=== PATIENT | male | born 1980 | race African-American/Black ===

== ENCOUNTER 2020-10-04 22:19 | Emergency (ER) | payer OTHER ==
[2020-10-04 22:47] LABS: BASOPHILS # (AUTO) 0.1 10^3/uL (0.0-0.1); BASOPHILS % (AUTO) 0.4 %; EOSINOPHILS % (AUTO) 0.1 %; HGB - HEMOGLOBIN 16.5 g/dL (14.0-18.0); LYMPHOCYTES # (AUTO) 1.7 10^3/uL (1.5-3.5); LYMPHOCYTES % (AUTO) 10.2 %; MEAN CORPUSCULAR HEMOGLOBIN 33.5 pg (27.0-31.0); MEAN CORPUSCULAR HGB CONC 33.6 g/dL (32.0-36.0); MEAN CORPUSCULAR VOLUME 99.8 fL (80.0-94.0); MEAN PLATELET VOLUME 9.7 fL (7.4-11.4); MONOCYTES % (AUTO) 12.5 %; NEUTROPHILS # (AUTO) 12.4 10^3/uL (1.5-6.6); NEUTROPHILS % (AUTO) 76.1 %; PLT - PLATELET COUNT 355 10^3/uL (130-450); RED BLOOD COUNT 4.92 10^6/uL (4.70-6.10); RED CELL DISTRIBUTION WIDTH 12.5 % (12.0-15.0); WHITE BLOOD COUNT 16.3 x10^3/uL (4.8-10.8)
[2020-10-04 23:00] LABS: ALBUMIN 3.1 g/dL (3.2-5.5); BILIRUBIN,TOTAL 3.2 mg/dL (0.2-1.0); CALCIUM 8.5 mg/dL (8.5-10.3); CREATININE 1.6 mg/dL (0.6-1.2); TOTAL PROTEIN 6.2 g/dL (6.7-8.2)
--- NOTE | 2020-10-04 23:02 | ED Physician Documentation ---
PD HPI CHEST PAIN - Stated complaint Stated Complaint: CP - Chief complaint Chief Complaint: Critical Care - History obtained from History obtained from: Patient - History of Present Illness Timing - onset: How many days ago (2) Timing - onset during: Rest Timing - duration: Days (2) Timing - details: Gradual onset, Still present Quality: Sharp, Pain Location: Right chest Radiation: Back Improved by: Rest Worsened by: Exertion, Inspiration, Movement, Position Associated symptoms: Shortness of air Similar symptoms before: Has not had sx before Recently seen: Not recently seen - Additional information Additional information: Previously well 40-year-old male who works as a civilian contracted commercial airplane pilot for the [email or web address] has developed pain in the right side of his chest about 2 days ago he does have a slight cough he denies a fever he does have some diaphoresis and he has some exertional dyspnea.He was exposed to coronavirus in July had tests which were negative and he does not feel he has been reexposed.He has developed some swelling to his lower extremities that began a bout 2 days ago as well Review of Systems Constitutional: denies: Fever Eyes: denies: Decreased vision Ears: denies: Ear pain Nose: denies: Rhinorrhea / runny nose, Congestion Throat: denies: Sore throat Cardiac: reports: Chest pain / pressure, Pedal edema. denies: Palpitations, Calf pain Respiratory: reports: Dyspnea, Cough GI: denies: Abdominal Pain, Nausea, Vomiting : denies: Dysuria, Frequency Skin: denies: Rash Musculoskeletal: denies: Neck pain, Back pain, Extremity pain Neurologic: denies: Generalized weakness, Focal weakness, Numbness PD PAST MEDICAL HISTORY - Allergies Allergies/Adverse Reactions: Allergies Allergy/AdvReac Type Severity Reaction Status Date / Time aspirin Allergy Unknown Verified 10/04/20 22:33 PD ED PE NORMAL - Vitals Vital signs reviewed: Yes (Cardiac and hypertensive marked) - General General: Alert and oriented X 3, No acute distress, Well developed/nourished - HEENT HEENT: Atraumatic, PERRL, EOMI - Neck Neck: Supple, no meningeal sign, No bony TTP - Cardiac Cardiac: No murmur, Other (Cardiac rate at 130) - Respiratory Respiratory: No respiratory distress, Other (Rhonchi over the right middle lung field) - Abdomen Abdomen: Soft, Non tender - Back Back: No CVA TTP, No spinal TTP - Derm Derm: Normal color, Warm and dry, No rash - Extremities Extremities: No deformity, Other (Trace edema bilaterally) - Neuro Neuro: Alert and oriented X 3, 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, No motor deficit, No sensory deficit, Normal speech Eye Opening: Spontaneous Motor: Obeys Commands Verbal: Oriented GCS Score: 15 - Psych Psych: Normal mood, Normal affect Results - Vitals Vitals: Vital Signs - 24 hr 10/04/20 10/04/20 10/05/20 22:25 22:33 00:30 Temperature 37.1 C Heart Rate 128 H 122 H 117 H Respiratory 15 22 16 Rate Blood Pressure 143/117 H 137/111 H 147/117 H O2 Saturation 97 95 95 10/05/20 01:00 Temperature Heart Rate 117 H Respiratory 24 Rate Blood Pressure 152/118 H O2 Saturation 94 Oxygen O2 Source Room air - EKG (time done) 22:28 Rate: Rate (enter#) (126) Rhythm: LAE Intervals: LBBB Compare to prior EKG: Old EKG unavailable Computer interpretation: Agree with computer - Labs Labs: Laboratory Tests 10/04/20 10/04/20 10/04/20 22:41 22:41 22:41 WBC 16.3 H RBC 4.92 Hgb 16.5 Hct 49.1 MCV 99.8 H MCH 33.5 H MCHC 33.6 RDW 12.5 Plt Count 355 MPV 9.7 Neut # (Auto) 12.4 H Lymph # (Auto) 1.7 [place] # (Auto) 2.0 H Eos # (Auto) 0.0 Baso # (Auto) 0.1 Absolute Nucleated RBC 0.00 Nucleated RBC % 0.0 Manual Slide Review Indicated Platelet Estimate NORMAL (130-450,000) Platelet Morphology NORMAL APPEARANCE RBC Morph Micro Appear NORMAL APPEARANCE D-Dimer Sodium 132 L Potassium 3.9 Chloride 99 L Carbon Dioxide 20 L Anion Gap 13.0 BUN 27 H Creatinine 1.6 H Estimated GFR (MDRD) 58 L Glucose 193 H Calcium 8.5 Total Bilirubin 3.2 H AST 39 ALT 44 Alkaline Phosphatase 41 L Troponin I High Sens 118.0 H* B-Natriuretic Peptide Total Protein 6.2 L Albumin 3.1 L Globulin 3.1 Albumin/Globulin Ratio 1.0 Lipase 53 H Nasal Adenovirus (PCR) Nasal B. parapertussis DNA (PCR) Nasal Coronavir 229E PCR Nasal Coronavir HKU1 PCR Nasal Coronavir NL63 PCR Nasal Coronavir OC43 PCR Nasal Enterovir/Rhinovir PCR Nasal Influenza B PCR Nasal Influenza A PCR Nasal Parainfluen 1 PCR Nasal Parainfluen 2 PCR Nasal Parainfluen 3 PCR Nasal Parainfluen 4 PCR Nasal RSV (PCR) Nasal B.pertussis DNA PCR Nasal C.pneumoniae (PCR) Pradeep Human Metapneumo PCR Nasal M.pneumoniae (PCR) Nasal SARS-CoV-2 (PCR) 10/04/20 10/04/20 10/04/20 22:41 23:32 23:37 WBC RBC Hgb Hct MCV MCH MCHC RDW Plt Count MPV Neut # (Auto) Lymph # (Auto) [place] # (Auto) Eos # (Auto) Baso # (Auto) Absolute Nucleated RBC Nucleated RBC % Manual Slide Review Platelet Estimate Platelet Morphology RBC Morph Micro Appear D-Dimer 993.0 H Sodium Potassium Chloride Carbon Dioxide Anion Gap BUN Creatinine Estimated GFR (MDRD) Glucose Calcium Total Bilirubin AST ALT Alkaline Phosphatase Troponin I High Sens B-Natriuretic Peptide 2714 H Total Protein Albumin Globulin Albumin/Globulin Ratio Lipase Nasal Adenovirus (PCR) NOT DETECTED Nasal B. parapertussis DNA (PCR) NOT DETECTED Nasal Coronavir 229E PCR NOT DETECTED Nasal Coronavir HKU1 PCR NOT DETECTED Nasal Coronavir NL63 PCR NOT DETECTED Nasal Coronavir OC43 PCR NOT DETECTED Nasal Enterovir/Rhinovir PCR NOT DETECTED Nasal Influenza B PCR NOT DETECTED Nasal Influenza A PCR NOT DETECTED Nasal Parainfluen 1 PCR NOT DETECTED Nasal Parainfluen 2 PCR NOT DETECTED Nasal Parainfluen 3 PCR NOT DETECTED Nasal Parainfluen 4 PCR NOT DETECTED Nasal RSV (PCR) NOT DETECTED Nasal B.pertussis DNA PCR NOT DETECTED Nasal C.pneumoniae (PCR) NOT DETECTED Pradeep Human Metapneumo PCR NOT DETECTED Nasal M.pneumoniae (PCR) NOT DETECTED Nasal SARS-CoV-2 (PCR) NOT DETECTED 10/05/20 00:49 WBC RBC Hgb Hct MCV MCH MCHC RDW Plt Count MPV Neut # (Auto) Lymph # (Auto) [place] # (Auto) Eos # (Auto) Baso # (Auto) Absolute Nucleated RBC Nucleated RBC % Manual Slide Review Platelet Estimate Platelet Morphology RBC Morph Micro Appear D-Dimer Sodium Potassium Chloride Carbon Dioxide Anion Gap BUN Creatinine Estimated GFR (MDRD) Glucose Calcium Total Bilirubin AST ALT Alkaline Phosphatase Troponin I High Sens 118.5 H* B-Natriuretic Peptide Total Protein Albumin Globulin Albumin/Globulin Ratio Lipase Nasal Adenovirus (PCR) Nasal B. parapertussis DNA (PCR) Nasal Coronavir 229E PCR Nasal Coronavir HKU1 PCR Nasal Coronavir NL63 PCR Nasal Coronavir OC43 PCR Nasal Enterovir/Rhinovir PCR Nasal Influenza B PCR Nasal Influenza A PCR Nasal Parainfluen 1 PCR Nasal Parainfluen 2 PCR Nasal Parainfluen 3 PCR Nasal Parainfluen 4 PCR Nasal RSV (PCR) Nasal B.pertussis DNA PCR Nasal C.pneumoniae (PCR) Pradeep Human Metapneumo PCR Nasal M.pneumoniae (PCR) Nasal SARS-CoV-2 (PCR) - Rads (name of study) Chest Radiology: Prelim report reviewed (Impression: Right lower lung infiltrate.), EMP read indepedently, See rad report CT angiogram chest Radiology: Prelim report reviewed (Impression: Motion limited study. No pulmonary embolism. Bilateral airspace disease and consolidation suspicious for viral/atypical pneumonia.), EMP read indepedently, See rad report Procedures - IVC sono (time) 2240 Bedside IVC sono: IVC measures (cm) (1.94), IVC collapsed c insp (cm) (1.94), High CVP PD MEDICAL DECISION MAKING - ED course Complexity details: reviewed results, re-evaluated patient, considered differential, d/w patient ED course: Previous well 40-year-old male presents to the emergency department with right- sided chest pain and is found to have a significant infiltrate in the right middle lobe. On my initial evaluation the patient's inferior vena cava was plethoric and I became concerned about the possibility of pulmonary embolism. His D-dimer was elevated and a CT angiogram of the chest was obtained does show some reflux of contrast into the inferior vena cava but no evidence of pulmonary embolism. He has elevated BNP, trop of 118 and a left bundle branch block on his electrocardiogram. We have no priors for comparison. He has been having symptoms for 2 days. I discussed the findings with Dr. Sharp at [facility] in [place] and he recommends transfer the patient for admission to the hospitalist. Respiratory PCR is negative. The patient has previously been on lisinopril hydrochlorothiazide for blood pressure control and he has stopped taking this about 11 months ago. He noticed yesterday that his slip on shoes were fitting tight. I suspect the congestive failure may be related to uncontrolled hypertension and acutely worsened by acute pneumonia. Departure - Departure Disposition: 02 Transfer Acute Care Hosp Clinical Impression: G6PD deficiency, LBBB (left bundle branch block) Congestive heart failure Qualifiers: Heart failure type: unspecified Heart failure chronicity: acute Qualified Code(s): I50.9 - Heart failure, unspecified Pneumonia Qualifiers: Pneumonia type: due to unspecified organism Laterality: right Lung location: middle lobe of lung Qualified Code(s): J18.9 - Pneumonia, unspecified organism Hypertension Qualifiers: Hypertension type: unspecified Qualified Code(s): I10 - Essential (primary) hypertension
[2020-10-04 23:15] LABS: PLATELET ESTIMATE, MANUAL NORMAL (130-450,000) (NORMAL); PLATELET MORPHOLOGY NORMAL APPEARANCE (NORMAL); RBC MORPHOLOGY (MULTIPLE) NORMAL APPEARANCE (NORMAL)
[2020-10-04] MEDS ORDERED: IOVERSOL 320 100 ML VIAL IVP ONE (23:45)
[2020-10-05 00:31] LABS: C. PNEUMONIAE- RESP PCR PANEL NOT DETECTED
[2020-10-05] MEDS ORDERED: cefTRIAXone 1 GM in SODIUM CHLORIDE 0.9% MINIBAG 100 ML IV STA (01:08)
[2020-10-05] MEDS ORDERED: AZITHROMYCIN INJ 500 MG in SODIUM CHLORIDE 0.9% 250 ML IV STA (01:08)
[2020-10-05] MEDS ORDERED: cefTRIAXone 1 GM VIAL ONE (01:24)
[2020-10-05] MEDS ORDERED: METOPROLOL 5 MG/5 ML VIAL IVP STA (01:58)
[2020-10-05] MEDS ORDERED: IOVERSOL 320 100 ML VIAL IVP ONE (03:21)
[2020-10-05 04:06] LABS: MUDS CUTOFF CONCENTRATIONS CUTOFF CONC BELOW:
[2020-10-05 04:12] VITALS: BP 128/98
[2020-10-05 04:16] LABS: AMPHETAMINE SCREEN,URINE NEGATIVE (NEGATIVE); BENZODIAZEPINES SCREEN, URINE NEGATIVE (NEGATIVE); COCAINE SCREEN URINE NEGATIVE (NEGATIVE); METHADONE SCREEN, URINE NEGATIVE (NEGATIVE); METHAMPHETAMINES SCREEN, URINE NEGATIVE (NEGATIVE); OPIATE SCREEN, URINE NEGATIVE (NEGATIVE); OXYCODONE SCREEN, URINE NEGATIVE (NEGATIVE); PROPOXYPHENE SCREEN, URINE NEGATIVE (NEGATIVE); TRICYCLIC ANTIDEPRESSANT,URINE NEGATIVE (NEGATIVE)
--- NOTE | 2020-10-05 08:37 | XRAY Report ---
PROCEDURE: Chest 1 View X-Ray INDICATIONS: chest pain TECHNIQUE: One view of the chest was acquired. COMPARISON: None FINDINGS: Surgical changes and devices: None. Lungs and pleura: No pleural effusions or pneumothorax. Moderate airspace opacity within the right l ower lung.. Mediastinum: Mediastinal contours appear normal. Heart size is enlarged. Bones and chest wall: No suspicious bony lesions. Overlying soft tissues appear unremarkable. IMPRESSION: 1. Right lower lobe pneumonia. 2. Cardiomegaly. 3. Concordant with preliminary interpretation. Reviewed by: Oelna Hutson MD on 10/05/2020 8:36 AM [facility] Approved by: Olena Hutson MD on 10/05/2020 8:36 AM [facility] Station ID: [id number]
--- NOTE | 2020-10-05 08:57 | CT Report ---
PROCEDURE: ANGIO CHEST W/WO INDICATIONS: right sided chest pain soa, elevated D-dimer CONTRAST: IV CONTRAST: Optiray 320 ml: 100 PO CONTRAST: *NO PO CONTRAST TECHNIQUE: After the administration of intravenous contrast, 2 mm thick sections acquired from the pulmonary api everett to the posterior costophrenic angles. 3-dimensional maximum intensity projection (MIP) coronal a nd sagittal reformats were then acquired through the thorax. For radiation dose reduction, the follow ing was used: automated exposure control, adjustment of mA and/or kV according to patient size. COMPARISON: None FINDINGS: Image quality: Degraded by motion artifact. Pulmonary arteries: Limited evaluation of the subsegmental pulmonary arteries bilaterally. Probable i ntraluminal filling defects within the subsegmental pulmonary arteries of the right upper and lower l obes. Lungs and pleura: There is moderate airspace opacity within the right middle lobe as well as the righ t lower lobe. There is a focal region of groundglass density within the left lung base posteriorly me asuring roughly 17 mm. No pleural effusions or pneumothorax. Central and peripheral airways are everett nt. Mediastinum: Heart size is enlarged, without pericardial effusion. No mediastinal or hilar adenopat hy. Thoracic aorta is normal in caliber and enhancement. Esophagus is normal in caliber, without hi atal hernia. Bones and chest wall: No suspicious bony lesions. Ribs and thoracic spine appear intact throughout. The thyroid is normal. No axillary or supraclavicular adenopathy. Abdomen: Visualized upper abdominal solid organs appear normal in the early arterial phase of enhanc ement. There is reflux of contrast into the hepatic venous vasculature. IMPRESSION: 1. Limited evaluation secondary to motion artifact. 2. Probable subsegmental pulmonary emboli bilaterally as described above. This finding was discussed with Dr. Monroy on 10.05.20 at 0850 hours. 3. Bilateral right greater than left pneumonia. 4. Findings suggestive of right heart failure. Reviewed by: Olena Hutson MD on 10/05/2020 8:55 AM PST Approved by: Olena Hutson MD on 10/05/2020 8:55 AM PST Station ID: [id number]
--- NOTE | 2020-10-07 08:34 | MISCELLANEOUS PROVIDER NOTE ---
Miscellaneous Provider Note - - Note: Chart accessed for continuity of care; Dr. Rosario (patient's primary care provider) called this ED and requested information regarding this patient's ED course and I could not provide this information without accessing the chart.
== END 2020-10-05 04:11 | disposition short-term general hospital (02) ==
LOC: ED 22:19
DX: J18.9 Pneumonia, unspecified organism (principal); I11.0 Hypertensive heart disease with heart failure; I50.9 Heart failure, unspecified; I44.7 Left bundle-branch block, unspecified; D75.A Glucose-6-phosphate dehydrogenase (G6PD) deficiency without anemia; Z20.828 Contact with and (suspected) exposure to other viral communicable diseases
CPT/HCPCS: 0202U; 36415; 71045; 71275; 80053; 80306; 83690; 83880; 84484; 85025; 85379; 93005; 96365; 96367; 96375; 99284; 99285; Q9967